=== PATIENT | male | born 1930 | race Caucasian/White ===

== ENCOUNTER 2016-12-11 01:49 | Emergency (ER) | payer MEDICARE, OTHER | END 2016-12-11 04:20 | disposition left against medical advice (07) | LOC: ER1 01:49 | DX: Z53.21 Procedure and treatment not carried out due to patient leaving prior to being seen by health care provider (principal) ==

== ENCOUNTER → 2017-01-27 | Outpatient (CLI) | payer MEDICARE, OTHER | LOC: EMI 01-19 17:15 | DX: C61 Malignant neoplasm of prostate (principal); Z79.51 Long term (current) use of inhaled steroids; M48.06 Spinal stenosis, lumbar region | CPT/HCPCS: 72158; A9577; J7050 ==

== ENCOUNTER 2017-02-15 06:07 | Emergency (ER) | payer MEDICARE, OTHER ==
[2017-02-15 08:07] LABS: HEMOGLOBIN 11.6 gm/dl (14.0-17.5); RED BLOOD COUNT 3.73 M/UL (4.20-5.50)
[2017-02-15 08:27] LABS: BUN/CREATININE RATIO 33 (0-10)
== END 2017-02-15 10:20 | disposition home or self-care (01) ==
LOC: ER1 06:07
PROVIDERS: Physician Assistant
DX: G89.3 Neoplasm related pain (acute) (chronic) (principal); C79.82 Secondary malignant neoplasm of genital organs; M25.511 Pain in right shoulder; Z88.2 Allergy status to sulfonamides; Z79.891 Long term (current) use of opiate analgesic
CPT/HCPCS: 36415; 71010; 73030; 80053; 82550; 82553; 83874; 84484; 85025; 93005; 96374; 96375; 96376; 99284; J2270; J2405